=== PATIENT | female | born 1980 | race Caucasian/White ===

== ENCOUNTER 2021-04-18 13:48 | Emergency (ER) | payer MEDICARE, OTHER, SELFPAY ==
[2021-04-18 14:00] VITALS: BP 141/86; PULSE 89; RESP 19; TEMP 37.1; O2SAT 99; BMI 36.5
--- NOTE | 2021-04-18 14:11 | XR_ITS ---
PROCEDURE INFORMATION: Exam: XR Right Foot Exam date and time: 04/18/2021 2:11 PM Age: 40 years old Clinical indication: Injury or trauma; Other: Dropped a box on foot; Blunt trauma; Right; Injury date: 04/17/21; Patient HX: Dropped box on top of foot yesterday, pain in area around 5th toe, bruising; Additional info: Dropped box on foot TECHNIQUE: Imaging protocol: XR Right foot. Views: 3 or more views. COMPARISON: No relevant prior studies available. FINDINGS: Bones/joints: No acute fracture or dislocation. There are no lytic skeletal lesions seen. No significant arthritic deformities. Minimal Achilles calcaneal spurring. Soft tissues: Mild soft tissue swelling.No radiopaque foreign bodies. No pathologic soft tissue calcification. IMPRESSION: 1. No acute fracture or dislocation. 2. Soft tissue swelling.
--- NOTE | 2021-04-18 14:31 | HMH.EDUTC ---
[facility] [place] Clinical Impression: Contusion Qualifiers: Encounter type: initial encounter Contusion area: foot Laterality: right Qualified Code(s): S90.31XA - Contusion of right foot, initial encounter Disposition: Home, Self-Care Condition on Discharge: Good Instructions: DI for Foot Sprain Additional Instructions: follow up with pcp Weightbearing as tolerated rest Ice with cold pack for 20 minutes remove may repeat for comfort every hour Brendan wrap for support and swelling no less in the shower. Be sure not too tight but not to lose either Elevate with ankle above your heart as much as possible to help reduce swelling and therefore pain Ibuprofen every 6 hours as needed for pain or inflammation. If needs something more you can take Tylenol every 4 hours as needed as long as her primary care has told he was okayed for you to take both. If improving any do not need to follow-up you can bring begin exercising 2-3 weeks after injury. Follow-up immediately if new or worsening symptoms or no noticeable improvement over the next 3-5 days. call ortho Referrals: George Luna [Primary Care Provider] - Time of Disposition: 14:48 Medical Decision Making - [place] Inquiry Pt receiving controlled substance: No Vital Signs: 04/18/21 14:00 Temperature 98.7 F Temperature Source Oral Pulse Rate [Right Brachial] 89 Respiratory Rate 19 Blood Pressure [Right Arm] 141/86 H Blood Pressure Mean [Right Arm] 104 Blood Pressure Source [Right Arm] Automatic Cuff Blood Pressure Position [Right Arm] Sitting 02 Sat by Pulse Oximetry 99 Oxygen Delivery Method Room Air Orders (Tests/Meds): ORDERS Category Date Time Status XR foot RT min 3V Stat Exams 04/18/21 14:11 Taken [facility] [place] HPI - General Chief complaint: Ur[facility] Stated complaint: pain and bruised top of left foot Time Seen by Provider: 04/18/21 14:31 Mode of Arrival: Ambulatory Source of Information: Patient Limitations: No Limitations Description of Symptoms (Recalled from Triage Doc. by RN): PATIENT C/O PAIN AND BRUISING TO TOP OF RIGHT FOOT AFTER SHE DROPPED A BOX ON IT WHILE MOVING YESTERDAY HEENT Symptoms (Recalled from RN notes): No Resp Symptoms (Recalled from RN notes): No Skin Symptoms (Recalled from RN notes): No MS Symptoms (Recalled from RN notes): Yes Functional Status (Recalled from RN notes): WNL - History of Present Illness Provider Complaint: 40 yr old female presents for rt foot pain. pt states yesterday she dropped a box on her foot while moving. pt states she has been placing ice on it when she can but it hurts to walk. - Related Data Home Medications Medication Instructions Recorded Confirmed Adalimumab [Humira Pen] 40 mg SQ WEEKLY 09/26/19 04/18/21 Gabapentin [Neurontin 300mg 300 mg PO TID 04/18/21 04/18/21 capsule] Migalastat HCl [Galafold] 123 mg PO DAILY 04/18/21 04/18/21 Allergies Allergy/AdvReac Type Severity Reaction Status Date / Time Sulfa (Sulfonamide Allergy Verified 09/26/19 10:35 Antibiotics) - Worker's Comp Is this a Worker's Comp case?: No [facility] History - Hepatitis A Screen Drug use history?: No High risk sexual behaviors?: No History of sexually transmitted infection?: No Currently employed?: No Childcare worker?: No Do you have indoor plumbing?: Yes Do you have electricity?: Yes Attestation statement:: This patient has been screened for Hepatitis A risk factors. I have reviewed the patient's past medical history: Yes - Social History Alcohol Intake: never Occupational Status: other ROS Obtained: Yes Systems reviewed as appropriate & no additional complaints - Constitutional Constitutional: Reports system reviewed and no additional complaints, except as docu, Denies chills - Eyes Eyes: Reports system reviewed and no additional complaints, except as docu, Denies change in vision - ENT Ears, Nose, Mouth, and Throat: Reports system reviewed and no additional compla
[2021-04-18 14:41] VITALS: BP 141/86; PULSE 89; RESP 19; TEMP 37.1; O2SAT 99
== END 2021-04-18 14:45 | disposition home or self-care (01) ==
PROVIDERS: Emergency Provider Nurse Practitioner Family; PCP Family Medicine
DX: S90.31XA Contusion of right foot, initial encounter (principal); W22.8XXA Striking against or struck by other objects, initial encounter; Y92.009 Unspecified place in unspecified non-institutional (private) residence as the place of occurrence of the external cause
CPT/HCPCS: G0463; 73630; 99202